=== PATIENT | female | born 1955 | race Two or more races ===

== ENCOUNTER 2019-01-02 10:27 | Inpatient (IN) | payer OTHER ==
[~2019-01-02] VITALS: Ht 160 cm; Wt 83.9 kg
[2019-02-26] MEDS ORDERED: TOPROL XL200 MG PO (13:03)
[2019-02-26] MEDS ORDERED: COZAAR100 MG PO (13:04)
[2019-02-26] MEDS ORDERED: CLONAZEPAM1 M1 PO (13:04)
[2019-03-06] MEDS ORDERED: OMEPRAZOLE20 MG PO (10:33)
[2019-03-06] MEDS ORDERED: PERCOCET 5-3251 EACH PO (10:33)
[2019-03-06] MEDS ORDERED: INTESTINEX680 M1 PO (10:33)
== END 2019-03-06 12:37 | disposition home or self-care (01) | DRG 331 ==
LOC: SURH 03-02 06:49 → O/R 03-02 06:49 → SURH 03-02 07:00
PROVIDERS: ADMIT Surgery
PROC: 0DJD8ZZ Inspection of Lower Intestinal Tract, Via Natural or Artificial Opening Endoscopic (ICD-10-PCS; 2019-03-02)
PROC: 0DTN4ZZ Resection of Sigmoid Colon, Percutaneous Endoscopic Approach (ICD-10-PCS; principal; 2019-03-02 07:00)
DX: K57.20 Diverticulitis of large intestine with perforation and abscess without bleeding (principal); I11.9 Hypertensive heart disease without heart failure; F41.8 Other specified anxiety disorders; E66.8 Other obesity